=== PATIENT | male | born 2000 | race African-American/Black ===

== ENCOUNTER 2023-12-16 09:12 | Emergency (ER) | payer SELFPAY ==
[~2023-12-16] VITALS: Ht 172.7 cm; Wt 70.0 kg
[2023-12-16 09:15] VITALS: BP 131/71; PULSE 77; TEMP 98.8; O2SAT 98
[2023-12-16] MEDS ORDERED: IBUP-2029 MT (09:49)
[2023-12-16 10:00] VITALS: RESP 17
[2023-12-16] MEDS: IBUPROFEN 600MG TABLET PO ONE (10:00)
== END 2023-12-16 10:47 | disposition home or self-care (01) ==
LOC: ER 09:12
DX: R51.9 Headache, unspecified (principal); R53.83 Other fatigue; R53.1 Weakness
CPT/HCPCS: 99283